=== PATIENT | female | born 1990 | race Caucasian/White ===

== ENCOUNTER 2021-11-28 00:55 | Emergency (ER) | payer BC ==
[~2021-11-28] VITALS: Ht 172.7 cm; Wt 129.3 kg
[2021-11-28] MEDS ORDERED: IBUPROFEN 400 MG TABLET ONE ×2 (01:37)
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
--- NOTE | 2021-11-28 01:40 | NUR ---
XRAY AT BEDSIDE
[2021-11-28] MEDS ORDERED: IBUPROFEN 400 MG TABLET PO ONE (02:00)
[2021-11-28 02:19] VITALS: BP 163/86
--- NOTE | 2021-11-28 02:19 | NUR ---
Patient discharged to home in stable condition. Written and verbal after care instructions given. Patient verbalizes understanding of instruction.
== END 2021-11-28 02:19 | disposition home or self-care (01) ==
LOC: ER 01:17
DX: S13.4XXA Sprain of ligaments of cervical spine, initial encounter (principal); M25.511 Pain in right shoulder; Z60.2 Problems related to living alone; V49.59XA Passenger injured in collision with other motor vehicles in traffic accident, initial encounter; Y93.89 Activity, other specified; Y92.413 State road as the place of occurrence of the external cause; Y99.8 Other external cause status
CPT/HCPCS: 72050-TC; 73030-TC